=== PATIENT | male | born 1980 | race African-American/Black ===

== ENCOUNTER 2017-01-14 13:13 | Emergency (ER) | payer BC ==
[~2017-01-14] VITALS: Ht 180.3 cm; Wt 103.4 kg
[~2017-01-14 13:13] MED LIST: NO MEDICATIONS; NORVASC PO
== END 2017-01-14 15:06 | disposition home or self-care (01) ==
LOC: CFTX 13:13 → CED 13:13 → CFTX 14:20
DX: T23.201A Burn of second degree of right hand, unspecified site, initial encounter (principal); R03.0 Elevated blood-pressure reading, without diagnosis of hypertension; F17.210 Nicotine dependence, cigarettes, uncomplicated; X08.8XXA Exposure to other specified smoke, fire and flames, initial encounter; Y92.009 Unspecified place in unspecified non-institutional (private) residence as the place of occurrence of the external cause; Z23 Encounter for immunization
CPT/HCPCS: 90471; 90715; 99283